=== PATIENT | female | born 2000 | race Caucasian/White ===

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

== ENCOUNTER 2021-09-18 08:00 | Outpatient (CLI) | payer OTHER ==
[2021-09-18 12:22] LABS: BILIRUBIN,URINE NEGATIVE (NEGATIVE); GLUCOSE, URINE (UA) NEGATIVE (NEGATIVE); KETONES,URINE (UA) NEGATIVE (NEGATIVE); LEUKOCYTE ESTERASE, URINE NEGATIVE (NEGATIVE); NITRITE,URINE NEGATIVE (NEGATIVE); OCCULT BLOOD,URINE LARGE (NEGATIVE); PROTEIN,URINE NEGATIVE (NEGATIVE); UROBILINOGEN,URINE 0.2 (NORMAL) E.U./dL (NORMAL)
[2021-09-18 12:24] LABS: CLARITY,URINE CLEAR (CLEAR)
[2021-09-18 12:45] LABS: BACTERIA,URINE Few /HPF (None Seen); SQUAMOUS EPITHELIAL CELL,UR FEW Squamous (<= Few); WBC,URINE 0-3 /HPF (0-5)
== END 2021-09-18 23:59 | disposition home or self-care (01) ==
LOC: LAB.N 08:00
PROVIDERS: ATTEND Nurse Practitioner
DX: R30.0 Dysuria (principal)
CPT/HCPCS: 81001; 87086

== ENCOUNTER 2022-01-16 17:34 | Emergency (ER) | payer OTHER ==
[2022-01-16] MEDS ORDERED: BACITRACIN ZINC OINT 1 PACKET TOP STA (18:13)
[2022-01-16] MEDS ORDERED: HYDROcod/ACETAM 5/325 MG TABLET PO STA (18:13)
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
--- NOTE | 2022-01-16 18:53 | XRAY Report ---
PROCEDURE: Knee 4 View LT INDICATIONS: fall, knee pain TECHNIQUE: 4 views of the left knee(s) were acquired. COMPARISON: None. FINDINGS: Bones: No fractures or dislocations. No suspicious bony lesions. Soft tissues: No joint effusion. No suspicious soft tissue calcifications. IMPRESSION: Intact left knee. Reviewed by: Bing Veliz MD on 01/16/2022 6:52 PM PDT Approved by: Bing Vleiz MD on 01/16/2022 6:52 PM PDT Station ID: [id number]
--- NOTE | 2022-01-16 18:54 | XRAY Report ---
PROCEDURE: Elbow 3 View LT INDICATIONS: fall, elbow pain TECHNIQUE: 3 views of the elbow were acquired. COMPARISON: None FINDINGS: Bones: Radial head fracture is slightly depressed. Normal bone mineralization Soft tissues: Large elbow joint effusion. No suspicious soft tissue calcifications. IMPRESSION: Depressed radial head fracture associated with large joint effusion Reviewed by: Rosendo Sosa MD on 01/16/2022 5:53 PM AKDT Approved by: Rosendo Sosa MD on 01/16/2022 5:53 PM AKDT Station ID: [id number]
[2022-01-16 19:36] VITALS: BP 133/71
== END 2022-01-16 19:35 | disposition home or self-care (01) ==
LOC: ED 17:34
DX: S52.122A Displaced fracture of head of left radius, initial encounter for closed fracture (principal); S09.93XA Unspecified injury of face, initial encounter; V00.141A Fall from scooter (nonmotorized), initial encounter
CPT/HCPCS: 73080; 73564; 99284; A9270

== ENCOUNTER 2022-02-18 15:52 | Emergency (ER) | payer OTHER ==
[2022-02-18 16:08] VITALS: BP 131/70
[2022-02-18] MEDS ORDERED: CLINDAMYCIN 150 MG CAPSULE PO STA (16:50)
[2022-02-18] MEDS ORDERED: HYDROcod/ACETAM 5/325 MG TABLET PO STA (16:50)
--- NOTE | 2022-02-18 16:50 | ED Physician Documentation ---
PD HPI HEENT - Stated complaint Stated Complaint: JAW PAIN - Chief complaint Chief Complaint: Heent - History obtained from History obtained from: Patient, Family - Additional information Additional information: 21-year-old has had 2 months of left-sided jaw pain that is acutely worse over the last few days. Been a couple years since dental appointment for routine matters but did have a dental trauma appointment a few months ago but this was not addressed. Review of Systems Constitutional: reports: Reviewed and negative Nose: reports: Reviewed and negative Throat: reports: Reviewed and negative PD PAST MEDICAL HISTORY - Past Medical History Respiratory: Asthma Neuro: Migraines CHIPPER: None Psych: Anxiety, ADD/ADHD - Past Surgical History Past Surgical History: Yes General: Other /CHIPPER: Other - Present Medications Home Medications: Ambulatory Orders Medication Instructions Recorded Confirmed Albuterol Sulfate [Proair Hfa 1 - 2 puffs INH Q4H PRN 06/17/16 01/16/22 Inhaler] ARIPiprazole [Abilify] 20 mg PO HS 01/16/22 01/16/22 Dextroamphetamine/Amphetamine 20 mg PO DAILY 01/16/22 01/16/22 [Adderall 20 mg Tablet] HYDROcod/ACETAM 5/325 [[place] 5/325] 1 - 2 ea PO Q6H PRN #14 tablet 01/16/22 Testosterone Cypionate 1 vial INJ .WEEKLY 01/16/22 01/16/22 lamoTRIgine [LaMICtal] 100 mg PO DAILY 01/16/22 01/16/22 HYDROcod/ACETAM 5/325 [[place] 5/325] 1 - 2 tab PO Q6H PRN #15 tablet 02/18/22 clindamycin HCL [Cleocin HCl] 300 mg PO QID #28 cap 02/18/22 - Allergies Allergies/Adverse Reactions: Allergies Allergy/AdvReac Type Severity Reaction Status Date / Time lactose Allergy Nausea Verified 02/18/22 16:06 maxx Allergy Respiratory Verified 02/18/22 16:06 amoxicillin [Amoxicillin] AdvReac Unknown Rash Verified 02/18/22 16:06 - Social History Does the pt smoke?: No Smoking Status: Never smoker Does the pt drink ETOH?: No Does the pt have substance abuse?: No - Immunizations Immunizations are current?: Yes - POLST Patient has POLST: No PD ED PE NORMAL - Vitals Vital signs reviewed: Yes - General General: Alert and oriented X 3, No acute distress - HEENT HEENT: Other (There is a large tender cavity in the last left mandibular molar that is quite tender but without trismus, facial swelling, sublingual edema.) - Neck Neck: Supple, no meningeal sign, No bony TTP - Neuro Neuro: Alert and oriented X 3, Normal speech Results - Vitals Vitals: Vital Signs - 24 hr 02/18/22 16:03 Temperature 36.2 C L Heart Rate 67 Respiratory 14 Rate Blood Pressure 131/70 H O2 Saturation 98 Oxygen O2 Source Room air Departure - Departure Disposition: Home, Self Care Clinical Impression: Dental abscess Condition: Good Record reviewed to determine appropriate education?: Yes Instructions: ED Abscess Dental Prescriptions: clindamycin HCL [Cleocin HCl] 300 mg PO QID #28 cap HYDROcod/ACETAM 5/325 [[place] 5/325] 1 - 2 tab PO Q6H PRN #15 tablet PRN Reason: Pain Comments: I sent your prescription electronically to [facility] in [place]. It is very important that you follow-up with a dentist. When it comes to dental problems like yours, the emergency department can only offer a short-term soluti on to your long-term problem. A couple of low cost options for dental care include: [facility] in [place], calls [phone] for an appointment Or [facility] in [place], call [phone] for an appointment. I am prescribing a short course of narcotic pain medication for you. These are potentially dangerous and addictive medications that should be used carefully. These medications may constipate you. Take an mpiu-ace-nhdtjpy stool softener (docusate) twice daily with plenty of water while taking these medications. If you go 24 hours without a bowel movement, take vaxh-kog-vrkhiae miralax, per package instructions. Do not drink or drive while taking these medications. If you received narcotic or sedating medications while in the emergency department, do not drive for 24 hours. Store this medication in a safe, secure place and out of reach of children. It is a violation of federal law to give or sell this medication to another person or to use in a manner other than prescribed. The ED will not refill narcotic prescriptions, including prescriptions lost or stolen. To dispose of unwanted medications: 1. [facility] at [address] in [place] has a medication drop box. They accept prescription medications (in pill form) Friday through Friday 9:00 a.m. to 5:00 p.m. 2. [facility] accepts prescription medications (in pill form only) for disposal year round. Call for more information. 3. Contact the [facility] for the next [facility] sponsored prescription drug collection event. , [phone], or [phone]; Note that many narcotic pain relievers also contain Tylenol/acetaminophen. Please ensure that your total dose of acetaminophen from all sources does not exceed 3 g (3000 mg) per day.
== END 2022-02-18 16:56 | disposition home or self-care (01) ==
LOC: ED 15:52
DX: K04.7 Periapical abscess without sinus (principal)
CPT/HCPCS: 99282; A9270

== ENCOUNTER 2022-03-27 15:25 | Emergency (ER) | payer OTHER ==
[2022-03-27 16:01] VITALS: BP 137/79
== END 2022-03-27 17:30 | disposition left against medical advice (07) ==
LOC: ED 15:25
DX: Z53.29 Procedure and treatment not carried out because of patient's decision for other reasons (principal)

== ENCOUNTER 2022-11-03 13:25 | Emergency (ER) | payer MEDICAID, OTHER ==
[2022-11-03 13:46] VITALS: BP 118/96
[2022-11-03] MEDS ORDERED: ONDANSETRON ODT 4 MG TABLET TL STA (14:30)
[2022-11-03] MEDS ORDERED: ARIPiprazole 5 MG TABLET PO STA (14:32)
[2022-11-03] MEDS ORDERED: hydrOXYzine PAMOATE 25 MG CAPSULE PO STA (14:33)
[2022-11-03 14:43] LABS: BASOPHILS % (AUTO) 0.3 %; EOSINOPHILS # (AUTO) 0.1 10^3/uL (0.0-0.7); EOSINOPHILS % (AUTO) 0.6 %; HCT - HEMATOCRIT 43.8 % (37.0-47.0); HGB - HEMOGLOBIN 14.8 g/dL (12.0-16.0); LYMPHOCYTES # (AUTO) 3.2 10^3/uL (1.5-3.5); LYMPHOCYTES % (AUTO) 36.8 %; MEAN CORPUSCULAR HEMOGLOBIN 30.3 pg (27.0-31.0); MEAN CORPUSCULAR HGB CONC 33.8 g/dL (32.0-36.0); MEAN CORPUSCULAR VOLUME 89.6 fL (81.0-99.0); MEAN PLATELET VOLUME 10.6 fL (7.9-10.8); MONOCYTES # (AUTO) 0.6 10^3/uL (0.0-1.0); MONOCYTES % (AUTO) 6.7 %; NEUTROPHILS # (AUTO) 4.8 10^3/uL (1.5-6.6); NEUTROPHILS % (AUTO) 55.3 %; PLT - PLATELET COUNT 250 10^3/uL (130-450); RED BLOOD COUNT 4.89 10^6/uL (4.20-5.40); RED CELL DISTRIBUTION WIDTH 13.6 % (12.0-15.0); WHITE BLOOD COUNT 8.8 x10^3/uL (4.8-10.8)
--- NOTE | 2022-11-03 14:48 | ED Physician Documentation ---
History of Present Illness - Stated complaint Stated Complaint: MHE/NAUSEA - Chief complaint Chief Complaint: MHE - Additonal information Additional information: 22-year-old female presents emergency department requesting help with her medic ations for her history of bipolar disorder. She has been unable to fill the prescription since May of this year due to a combination of lack of insurance and then worsening mental health needs that she is [facility] She states that she is so anxious now that she is constantly smoking pot and nauseated. She is currently trying to establish state insurance and get back in to [place]. She does have some passive suicidal ideation but no actual intent or plan. She does not desire hospitalization. She is hoping that we can prescribe Abilify and hydroxyzine until she is able to reestablish with a new psychiatric provider. She is attended by her mom who is with her and seems supportive. Review of Systems Constitutional: denies: Fever Cardiac: reports: Reviewed and negative Respiratory: reports: Reviewed and negative GI: reports: Reviewed and negative : reports: Reviewed and negative Psychiatric: reports: Anxiety PD PAST MEDICAL HISTORY - Past Medical History Respiratory: Asthma Neuro: Migraines SCRAP WORKER: None Psych: Anxiety, ADD/ADHD - Past Surgical History Past Surgical History: Yes General: Other /SCRAP WORKER: Other - Present Medications Home Medications: Ambulatory Orders Medication Instructions Recorded Confirmed Albuterol Sulfate [Proair Hfa 1 - 2 puffs INH Q4H PRN 06/17/16 01/16/22 Inhaler] ARIPiprazole [Abilify] 20 mg PO HS 01/16/22 01/16/22 Dextroamphetamine/Amphetamine 20 mg PO DAILY 01/16/22 01/16/22 [Adderall 20 mg Tablet] HYDROcod/ACETAM 5/325 [[place] 5/325] 1 - 2 ea PO Q6H PRN #14 tablet 01/16/22 Testosterone Cypionate 1 vial INJ .WEEKLY 01/16/22 01/16/22 lamoTRIgine [LaMICtal] 100 mg PO DAILY 01/16/22 01/16/22 HYDROcod/ACETAM 5/325 [[place] 5/325] 1 - 2 tab PO Q6H PRN #15 tablet 02/18/22 clindamycin HCL [Cleocin HCl] 300 mg PO QID #28 cap 02/18/22 ARIPiprazole [Abilify] 10 mg PO DAILY 30 Days #60 tablet 11/03/22 Ondansetron Odt [Zofran] 4 mg TL Q6H PRN #10 tablet 11/03/22 hydrOXYzine pamoate [Hydroxyzine 25 mg PO BID PRN #20 cap 11/03/22 Pamoate] - Allergies Allergies/Adverse Reactions: Allergies Allergy/AdvReac Type Severity Reaction Status Date / Time maxx Allergy Respiratory Verified 03/27/22 16:01 amoxicillin [Amoxicillin] AdvReac Unknown Rash Verified 03/27/22 16:01 - Social History Does the pt smoke?: No Smoking Status: Never smoker Does the pt drink ETOH?: No Does the pt have substance abuse?: No - Immunizations Immunizations are current?: Yes - POLST Patient has POLST: No PD ED PE NORMAL - General General: Alert and oriented X 3, No acute distress - HEENT HEENT: PERRL - Neck Neck: Supple, no meningeal sign - Cardiac Cardiac: RRR, No murmur - Respiratory Respiratory: No respiratory distress - Abdomen Abdomen: Normal bowel sounds, Soft - Derm Derm: Normal color - Psych Psych: No: Normal mood (Mildly depressed affect but good insight. No active plan for self-harm.) Results - Vitals Vitals: Vital Signs - 24 hr 11/03/22 11/03/22 13:38 13:44 Temperature 97.6 C H Heart Rate 96 Respiratory 16 Rate Blood Pressure 118/96 H O2 Saturation 98 Oxygen O2 Source Room air - Labs Labs: Laboratory Tests 11/03/22 11/03/22 11/03/22 14:34 14:34 14:34 WBC 8.8 RBC 4.89 Hgb 14.8 Hct 43.8 MCV 89.6 MCH 30.3 MCHC 33.8 RDW 13.6 Plt Count 250 MPV 10.6 Neut # (Auto) 4.8 Lymph # (Auto) 3.2 [place] # (Auto) 0.6 Eos # (Auto) 0.1 Baso # (Auto) 0.0 Absolute Nucleated RBC 0.00 Nucleated RBC % 0.0 Sodium 139 Potassium 3.9 Chloride 109 Carbon Dioxide 24 Anion Gap 6.0 BUN 8 Creatinine 0.6 Estimated GFR (MDRD) 126 Glucose 98 Calcium 9.7 Magnesium 2.0 Total Bilirubin 0.5 AST 19 ALT 21 Alkaline Phosphatase 71 Total Creatine Kinase 88 Total Protein 8.0 Albumin 4.6 Globulin 3.4 Albumin/Globulin Ratio 1.4 Lipase 29 TSH 1.04 Urine Color Urine Clarity Urine pH Ur Specific [place] Urine Protein Urine Glucose (UA) Urine Ketones Urine Occult Blood Urine Nitrite Urine Bilirubin Urine Urobilinogen Ur Leukocyte Esterase Ur Microscopic Review Urine Culture Comments Urine HCG, Qual Salicylates < 6.0 Urine Opiates Screen Ur Oxycodone Screen Urine Methadone Screen Ur Propoxyphene Screen Acetaminophen < 10 L Ur Barbiturates Screen Ur Tricyclics Screen Ur Phencyclidine Scrn Ur Amphetamine Screen U Methamphetamines Scrn U Benzodiazepines Scrn Urine Cocaine Screen U Cannabinoids Screen Ethyl Alcohol < 5.0 11/03/22 14:42 WBC RBC Hgb Hct MCV MCH MCHC RDW Plt Count MPV Neut # (Auto) Lymph # (Auto) [place] # (Auto) Eos # (Auto) Baso # (Auto) Absolute Nucleated RBC Nucleated RBC % Sodium Potassium Chloride Carbon Dioxide Anion Gap BUN Creatinine Estimated GFR (MDRD) Glucose Calcium Magnesium Total Bilirubin AST ALT Alkaline Phosphatase Total Creatine Kinase Total Protein Albumin Globulin Albumin/Globulin Ratio Lipase TSH Urine Color YELLOW Urine Clarity CLEAR Urine pH 7.0 Ur Specific [place] 1.020 Urine Protein TRACE Urine Glucose (UA) NEGATIVE Urine Ketones NEGATIVE Urine Occult Blood NEGATIVE Urine Nitrite NEGATIVE Urine Bilirubin NEGATIVE Urine Urobilinogen 2 H Ur Leukocyte Esterase NEGATIVE Ur Microscopic Review NOT INDICATED Urine Culture Comments NOT INDICATED Urine HCG, Qual NEGATIVE Salicylates Urine Opiates Screen NEGATIVE Ur Oxycodone Screen NEGATIVE Urine Methadone Screen NEGATIVE Ur Propoxyphene Screen NEGATIVE Acetaminophen Ur Barbiturates Screen NEGATIVE Ur Tricyclics Screen NEGATIVE Ur Phencyclidine Scrn NEGATIVE Ur Amphetamine Screen NEGATIVE U Methamphetamines Scrn NEGATIVE U Benzodiazepines Scrn NEGATIVE Urine Cocaine Screen NEGATIVE U Cannabinoids Screen POSITIVE H Ethyl Alcohol Departure - Departure Disposition: 01 Home, Self Care Clinical Impression: History of bipolar disorder, Medication care plan discussed with patient Condition: Stable Follow-Up: Leydi Roth, ALF, PRINCIPAL STRATEGIST, PMHNP [Credentialed Staff Provider] - Prescriptions: ARIPiprazole [Abilify] 10 mg PO DAILY 30 Days #60 tablet hydrOXYzine pamoate [Hydroxyzine Pamoate] 25 mg PO BID PRN #20 cap PRN Reason: Anxiety Ondansetron Odt [Zofran] 4 mg TL Q6H PRN #10 tablet PRN Reason: Nausea / Vomiting Comments: Tanika your labs today were all essentially normal. You have expressed to us that you have been out of your Abilify and because of this you are having increasing mental health crisis. You have thought of suicide but do not have an active plan. I am writing a prescription for Abilify. You should start taking 10 mg a day. You may need to have the dose adjusted after a few weeks. I am also sending a prescription for some Zofran and nausea medicine as well as hydroxyzine which you can use as needed for anxiety. If you find that your thoughts of self-harm are increasing, you feel that your mood is [id number] or you are unsafe in any way please call the National hotline number at 988 or Return immediately to the emergency department. I am giving you the prescription of an new nurse practitioner by the last name of Ira who is excepting new patients. You may need a referral for her from your primary care doctor. If you find that you are able to follow-up with Ahsan Kumar that can also work.
[2022-11-03 14:53] LABS: MUDS CUTOFF CONCENTRATIONS CUTOFF CONC BELOW:
[2022-11-03 14:57] LABS: BILIRUBIN,URINE NEGATIVE (NEGATIVE); GLUCOSE, URINE (UA) NEGATIVE (NEGATIVE); KETONES,URINE (UA) NEGATIVE (NEGATIVE); LEUKOCYTE ESTERASE, URINE NEGATIVE (NEGATIVE); NITRITE,URINE NEGATIVE (NEGATIVE); OCCULT BLOOD,URINE NEGATIVE (NEGATIVE); PROTEIN,URINE TRACE mg/dL (NEGATIVE); UROBILINOGEN,URINE 2 E.U./dL (NORMAL)
[2022-11-03 15:01] LABS: CLARITY,URINE CLEAR (CLEAR); HCG UR QUAL NEGATIVE
[2022-11-03 15:02] LABS: ACETAMINOPHEN < 10 ug/mL (10-30); ALBUMIN 4.6 g/dL (3.2-5.5); ALBUMIN/GLOBULIN RATIO 1.4 (1.0-2.2); ALKALINE PHOSPHATASE 71 IU/L (42-121); ALT ALANINE AMINOTRANSFERASE 21 IU/L (10-60); AST ASPARTATE AMINOTRANSFERASE 19 IU/L (10-42); BILIRUBIN,TOTAL 0.5 mg/dL (0.2-1.0); BUN - BLOOD UREA NITROGEN 8 mg/dL (6-20); CALCIUM 9.7 mg/dL (8.5-10.3); CARBON DIOXIDE - CO2 24 mmol/L (21-32); CHLORIDE 109 mmol/L (101-111); CK- CREATINE KINASE 88 IU/L (22-269); CREATININE 0.6 mg/dL (0.4-1.0); ETOH - ETHANOL < 5.0 mg/dL; GFR - MDRD 126 (>89); GLUCOSE 98 mg/dL (70-100); LIPASE 29 U/L (22-51); POTASSIUM 3.9 mmol/L (3.5-5.0); SALICYLATE < 6.0 mg/dL; SODIUM 139 mmol/L (135-145)
[2022-11-03 15:14] LABS: AMPHETAMINE SCREEN,URINE NEGATIVE (NEGATIVE); BARBITURATE SCREEN,UR NEGATIVE (NEGATIVE); BENZODIAZEPINES SCREEN, URINE NEGATIVE (NEGATIVE); COCAINE SCREEN URINE NEGATIVE (NEGATIVE); METHADONE SCREEN, URINE NEGATIVE (NEGATIVE); METHAMPHETAMINES SCREEN, URINE NEGATIVE (NEGATIVE); OPIATE SCREEN, URINE NEGATIVE (NEGATIVE); OXYCODONE SCREEN, URINE NEGATIVE (NEGATIVE); PROPOXYPHENE SCREEN, URINE NEGATIVE (NEGATIVE); THC CANNABINOID SCREEN, URINE POSITIVE (NEGATIVE); TRICYCLIC ANTIDEPRESSANT,URINE NEGATIVE (NEGATIVE)
[2022-11-04] MEDS ORDERED: ARIPiprazole 5 MG TABLET PO SCH (09:00)
== END 2022-11-03 16:13 | disposition home or self-care (01) ==
LOC: ED 13:25
DX: F31.9 Bipolar disorder, unspecified (principal)
CPT/HCPCS: 36415; 80053; 80306; 80307; 80320; 80329; 81003; 81025; 82550; 83690; 83735; 84443; 85025; 99283; 99284; A9270; Q0162; 81001; 87086

== ENCOUNTER 2023-02-11 13:28 | Emergency (ER) | payer MEDICAID | END 2023-02-11 13:31 | disposition left against medical advice (07) | LOC: ED 13:28 | DX: Z53.21 Procedure and treatment not carried out due to patient leaving prior to being seen by health care provider (principal) ==